=== PATIENT | male | born 1965 | race Caucasian/White ===

== ENCOUNTER → 2019-06-22 14:48 | Outpatient (BNVA) | payer MEDICARE, MEDICAID, SELFPAY | PROVIDERS: Family Provider Family Medicine; PCP Family Medicine; Visit Provider Nurse Practitioner | DX: F43.12 Post-traumatic stress disorder, chronic (principal); F41.1 Generalized anxiety disorder; F17.210 Nicotine dependence, cigarettes, uncomplicated | CPT/HCPCS: 99213 ==

== ENCOUNTER 2019-06-23 15:39 | Outpatient (CLI) | payer MEDICARE, MEDICAID, SELFPAY ==
--- NOTE | 2019-06-23 | XR_ITS ---
WS: [id number] CHEST 2 VIEWS HISTORY: COPD WITH ACUTE EXACERBATION COMPARISON: 2018 Lungs: New area of increasing consolidation at the lingula. There is also mild tenting of the LEFT di aphragm. Otherwise lungs are clear. Cardiac size: Normal. Mediastinum/Aorta: Normal mediastinum. Bones: Mild thoracic spondylosis. XR/XR chest 2V* [id number] IMPRESSION: 1. New opacification in the lingula with tenting of the diaphragm. Differentia l includes pneumonia and atelectasis. Neoplasm not completely excluded. Recomme nd follow-up radiograph after treatment to ensure resolution. 2. Emphysema.
== END 2019-06-23 15:40 | disposition home or self-care (01) ==
LOC: RADOUTREAD 06-24 07:43
PROVIDERS: Family Provider Family Medicine; PCP Family Medicine; Visit Provider Family Medicine
DX: J43.9 Emphysema, unspecified (principal)

== ENCOUNTER 2019-08-12 15:03 | Outpatient (CLI) | payer MEDICARE, MEDICAID, SELFPAY ==
--- NOTE | 2019-08-12 | XR_ITS ---
WS: [id number] Chest 2 views, 08/12/2019 Clinical Data: COPD WITH ACUTE EXACERBATION Comparison: PA and lateral chest, 06/23/2019. Findings: No nodules, masses or effusions are seen. The heart is normal. The pulmonary vascularity is not increased. No pneumonia or pneumothorax is seen. There is a left cardiophrenic fat pad or cyst o r perhaps pleural reaction unchanged. XR/XR chest 2V* [id number] Impression: Negative chest.
== END 2019-08-12 15:04 | disposition home or self-care (01) ==
LOC: RADOUTREAD 08-13 07:33
PROVIDERS: Family Provider Family Medicine; PCP Family Medicine; Visit Provider Family Medicine
DX: Z01.89 Encounter for other specified special examinations (principal)

== ENCOUNTER → 2019-09-14 07:36 | Outpatient (BNVA) | payer MEDICARE, MEDICAID, SELFPAY | PROVIDERS: Family Provider Family Medicine; PCP Family Medicine; Visit Provider Nurse Practitioner | DX: F41.1 Generalized anxiety disorder (principal); F43.12 Post-traumatic stress disorder, chronic | CPT/HCPCS: 99213 ==

== ENCOUNTER → 2019-12-07 07:46 | Outpatient (BNVA) | payer MEDICARE, MEDICAID, SELFPAY | PROVIDERS: Family Provider Family Medicine; PCP Family Medicine; Visit Provider Nurse Practitioner | DX: F41.1 Generalized anxiety disorder (principal); F43.12 Post-traumatic stress disorder, chronic | CPT/HCPCS: 99213 ==

== ENCOUNTER → 2020-04-11 08:10 | Outpatient (BNVA) | payer MEDICARE, MEDICAID, SELFPAY | PROVIDERS: Family Provider Family Medicine; PCP Family Medicine; Visit Provider Nurse Practitioner | DX: F43.12 Post-traumatic stress disorder, chronic (principal); F41.1 Generalized anxiety disorder | CPT/HCPCS: 99213 ==

== ENCOUNTER → 2020-07-05 07:43 | Outpatient (BNVA) | payer MEDICARE, MEDICAID, SELFPAY | PROVIDERS: Family Provider Family Medicine; PCP Family Medicine; Visit Provider Nurse Practitioner | DX: F43.12 Post-traumatic stress disorder, chronic (principal); F41.1 Generalized anxiety disorder | CPT/HCPCS: 99213 ==

== ENCOUNTER → 2020-08-30 08:33 | Outpatient (BNVA) | payer MEDICARE, MEDICAID, SELFPAY | PROVIDERS: PCP Family Medicine; Referring Provider Family Medicine; Visit Provider Anesthesiology Pain Medicine | DX: M79.18 Myalgia, other site (principal); M54.16 Radiculopathy, lumbar region; M54.9 Dorsalgia, unspecified; M47.816 Spondylosis without myelopathy or radiculopathy, lumbar region; M51.36 Other intervertebral disc degeneration, lumbar region | CPT/HCPCS: 20553; 99205; J1030; J3490 ==

== ENCOUNTER 2020-09-15 12:44 | Outpatient (CLI) | payer MEDICARE, MEDICAID, SELFPAY ==
--- NOTE | 2020-09-15 13:00 | MR_ITS ---
WS: [id number] MRI LUMBAR SPINE NONCONTRAST TECHNIQUE: Sagittal T1, T2 and STIR imaging. Axial T1 and T2 imaging. CLINICAL INFORMATION: M54.16 - Radiculopathy, lumbar region COMPARISON: MRI 2009 FINDINGS: Images moderately degraded due to motion artifact. Mild central canal stenosis in the cervical spinal pier hand helper imaging at C5-C6 and C6-C7. Tiny amount of m yelomalacia or tiny syrinx in the thoracic cord at T7. L1-L2: Mild disc bulging with slight effacement of ventral thecal sac. Moderate central canal stenosi s. Small right foraminal protrusion with mild to moderate right foraminal narrowing. L2-L3: Broad-based central disc protrusion with severe central canal stenosis. Moderate facet arthrop athy. Impingement and flattening of the thecal sac. Foramen are patent. L3-L4: Mild annular bulging with slight effacement of the ventral thecal sac. Moderate facet arthropa thy. Spinal canal and foramen are patent. L4-L5: Mild disc bulging with narrowing of the subarticular recess bilaterally. Mild central canal st enosis. Mild left and no significant right foraminal narrowing. Moderate facet arthropathy. L5-S1: Evidence of prior left hemilaminectomy at this level. Filling of the left subarticular recess likely due to postoperative changes/granulation tissue. Appearance is similar compared to 2009. Moder ate left and mild right bony foraminal narrowing. Visualized pelvic bony structures: Normal. Paravertebral soft tissues: Normal. MR/MR lumbar spine wo con* [id number] IMPRESSION: 1. Broad-based central disc protrusion L2-3 is new from 2009 with severe centr al canal stenosis and flattening of the thecal sac. Moderate facet arthropathy this level. Associated proximal redundancy of the cauda equina nerve rootlets. 2. Mild to moderate central canal stenosis L1-2 with mild right foraminal narr owing. 3. Prior postoperative changes left L5-S1 hemilaminectomy with presumed partia l discectomy. Granulation tissue appears to fill the left subarticular recess s imilar to 2009. Moderate left L5-S1 bony foraminal narrowing. 4. Mild central canal stenosis L4-5 due to disc bulging with facet arthropathy and ligamentum flavum hypertrophy. Mild left L4-5 foraminal narrowing. 5. Mild central canal stenosis in the cervical spinal pier hand helper imaging at C5-C6 a nd C6-C7. Additional small focus of myelomalacia or tiny syrinx in the mid thor acic cord. Findings can be further evaluated with MRI if clinically indicated.
== END 2020-09-15 12:45 | disposition home or self-care (01) ==
LOC: RADSHAW 12:53
PROVIDERS: PCP Family Medicine; Visit Provider Anesthesiology Pain Medicine
DX: M54.16 Radiculopathy, lumbar region (principal); M51.26 Other intervertebral disc displacement, lumbar region; M48.061 Spinal stenosis, lumbar region without neurogenic claudication
CPT/HCPCS: 72148

== ENCOUNTER → 2020-09-20 09:57 | Outpatient (BNVA) | payer MEDICARE, MEDICAID, SELFPAY | PROVIDERS: PCP Family Medicine; Visit Provider Anesthesiology Pain Medicine | DX: M54.42 Lumbago with sciatica, left side (principal); M48.062 Spinal stenosis, lumbar region with neurogenic claudication; M47.816 Spondylosis without myelopathy or radiculopathy, lumbar region; M51.36 Other intervertebral disc degeneration, lumbar region; M54.16 Radiculopathy, lumbar region; M54.9 Dorsalgia, unspecified | CPT/HCPCS: 99215 ==

== ENCOUNTER → 2020-09-21 14:58 | Outpatient (BNVA) | payer MEDICARE, MEDICAID, SELFPAY | PROVIDERS: PCP Family Medicine; Referring Provider Anesthesiology Pain Medicine; Visit Provider Orthopaedic Surgery | DX: M54.16 Radiculopathy, lumbar region (principal); M51.36 Other intervertebral disc degeneration, lumbar region | CPT/HCPCS: 72120 ==

== ENCOUNTER → 2020-10-03 15:12 | Outpatient (BNVA) | payer MEDICARE, MEDICAID, SELFPAY | PROVIDERS: PCP Family Medicine; Visit Provider Nurse Practitioner | DX: F43.12 Post-traumatic stress disorder, chronic (principal); F41.1 Generalized anxiety disorder | CPT/HCPCS: 99214 ==

== ENCOUNTER → 2020-12-14 14:46 | Outpatient (BNVA) | payer MEDICARE, MEDICAID, SELFPAY | PROVIDERS: PCP Family Medicine; Visit Provider Nurse Practitioner | DX: F43.12 Post-traumatic stress disorder, chronic (principal); F41.1 Generalized anxiety disorder | CPT/HCPCS: 99214 ==

== ENCOUNTER → 2021-01-10 08:27 | Outpatient (BNVA) | payer MEDICARE, MEDICAID, SELFPAY | PROVIDERS: PCP Family Medicine Adult Medicine; Visit Provider Family Medicine Adult Medicine | DX: E66.9 Obesity, unspecified (principal); R03.0 Elevated blood-pressure reading, without diagnosis of hypertension; Z87.898 Personal history of other specified conditions; N50.9 Disorder of male genital organs, unspecified; J44.9 Chronic obstructive pulmonary disease, unspecified; M15.9 Polyosteoarthritis, unspecified; Z13.6 Encounter for screening for cardiovascular disorders; F41.1 Generalized anxiety disorder | CPT/HCPCS: 80053; 80061; 83036; 84443; 85025; 85651 ==

== ENCOUNTER → 2021-02-02 08:38 | Outpatient (BNVA) | payer MEDICARE, MEDICAID, SELFPAY | PROVIDERS: PCP Family Medicine Adult Medicine; Visit Provider Urology | DX: N50.9 Disorder of male genital organs, unspecified (principal); R10.31 Right lower quadrant pain | CPT/HCPCS: 81003 ==

== ENCOUNTER → 2021-03-13 14:34 | Outpatient (BNVA) | payer MEDICARE, MEDICAID, SELFPAY | PROVIDERS: PCP Family Medicine Adult Medicine; Visit Provider Nurse Practitioner | DX: F43.12 Post-traumatic stress disorder, chronic (principal); F41.1 Generalized anxiety disorder | CPT/HCPCS: 99214 ==

== ENCOUNTER → 2021-05-31 13:18 | Outpatient (BNVA) | payer MEDICARE, MEDICAID, SELFPAY | PROVIDERS: PCP Family Medicine Adult Medicine; Visit Provider Nurse Practitioner | DX: F43.12 Post-traumatic stress disorder, chronic (principal); F41.1 Generalized anxiety disorder | CPT/HCPCS: 99214 ==

== ENCOUNTER 2021-06-06 08:24 | Outpatient (CLI) | payer MEDICARE, MEDICAID, SELFPAY ==
--- NOTE | 2021-06-06 10:00 | CT_ITS ---
WS: [id number] CT ABDOMEN PELVIS TECHNIQUE: Contrast-enhanced CT of the abdomen and pelvis with coronal and sagittal reformatted image s. CLINICAL INFORMATION: R10.31 - Right lower quadrant pain COMPARISON: CT 10 ,014 DLP: 1206.[address] scans at [facility] use at least one of these dose optimization techniques: automated e xposure control; mA and/or kV adjustment per patient size (includes targeted exams where dose is matc hed to clinical indication); or iterative reconstruction. FINDINGS: Diffuse fatty infiltration of the liver. A few incidental hepatic cysts. Normal gallbladder. Normal p ortal vein and splenic vein. Mild fatty atrophy of the pancreas. Normal spleen. Small esophageal hiat al hernia. Slight atelectasis in the lung bases. Adrenal glands are normal. Normal renal parenchymal enhancement. No hydronephrosis. No hydronephrosis in either kidney. Normal caliber abdominal aorta. Small fat-containing left greater than right inguinal hernias. Tiny incidental fat-containing umbilic al hernia. Sigmoid diverticulosis. No evidence of acute diverticulitis. No evidence of high-grade sma ll or large bowel obstruction. Normal air-filled appendix. No evidence of acute appendicitis. No flui d collections in right lower quadrant. Normal caliber abdominal aorta. No abdominal or pelvic lymphadenopathy. Moderate spondylitic changes lumbar spine. Eccentric sclerotic changes involving the articular surface of the right femoral head with cystic familia nges suspicious for avascular necrosis. Minimal depression. Recommend correlation with right hip pain . This can be further evaluated with MRI. This was present in 2013. CT/CT abdomen pelvis w con* [id number] IMPRESSION: 1. Normal appendix in the right lower quadrant. No evidence of acute appendici tis. 2. Mild diffuse fatty infiltration of the liver. A few incidental stable subce ntimeter hepatic cysts. 3. Small esophageal hiatal hernia is progressed compared to 2014. No hydroneph rosis in either kidney. 4. Sigmoid diverticulosis. No evidence of acute diverticulitis. 5. Evidence of avascular necrosis in the right femoral head similar to 2014. C orrelation right hip pain. This can be further evaluated with MRI.
[2021-06-06] MEDS: iohexol 350 mg/mL 100 mL Btl IV (15:04)
[2021-06-06] MEDS: iohexol 300 mg/mL 50 mL Btl PO (15:05)
== END 2021-06-06 08:25 | disposition home or self-care (01) ==
PROVIDERS: PCP Family Medicine Adult Medicine; Visit Provider Surgery
DX: R10.31 Right lower quadrant pain (principal); K76.0 Fatty (change of) liver, not elsewhere classified; K44.9 Diaphragmatic hernia without obstruction or gangrene; K57.30 Diverticulosis of large intestine without perforation or abscess without bleeding
CPT/HCPCS: 74177; Q9967

== ENCOUNTER → 2021-06-26 14:32 | Outpatient (BNVA) | payer MEDICARE, MEDICAID, SELFPAY | PROVIDERS: PCP Family Medicine Adult Medicine; Referring Provider Surgery; Visit Provider Orthopaedic Surgery | DX: M25.551 Pain in right hip (principal) | CPT/HCPCS: 73502 ==

== ENCOUNTER → 2021-07-03 10:34 | Outpatient (BNVA) | payer MEDICARE, MEDICAID, SELFPAY | PROVIDERS: PCP Family Medicine Adult Medicine; Visit Provider Nurse Practitioner Family | DX: Z20.822 Contact with and (suspected) exposure to COVID-19 (principal); I10 Essential (primary) hypertension; J44.9 Chronic obstructive pulmonary disease, unspecified; Z72.0 Tobacco use | CPT/HCPCS: 87635 ==

== ENCOUNTER → 2021-07-23 11:04 | Outpatient (BNVA) | payer MEDICARE, SELFPAY | PROVIDERS: PCP Family Medicine Adult Medicine; Visit Provider Orthopaedic Surgery | DX: Z01.818 Encounter for other preprocedural examination (principal); Z20.822 Contact with and (suspected) exposure to COVID-19 | CPT/HCPCS: 87635 ==

== ENCOUNTER 2021-07-27 09:26 | Day surgery (SDC) | payer MEDICARE, MEDICAID, SELFPAY ==
[2021-07-24 12:24] VITALS: BMI 29.5
--- NOTE | 2021-07-24 12:42 | P.ANESASSM_ITS ---
Pre-Anesthetic Assessment Height/Weight: Height 1.73 m Weight 87.997 kg Operation Date: 07/27/21 07:00 Proposed Procedures p Lumbar Spine Decompression L2/3 04944/19712/M48.062(Right) - Enrique Pederson DO Familial anesthetic complications: None Social No alcohol and No tobacco former smoker - quit 4 months ago Exam alert, oriented x 3, clear to auscultation bilaterally and regular rate & rhythm Airway Mallampati: Class III Dentition: other (no upper teeth) Pulmonary Chronic Obstructive Pulmonary Disease (improved since quitting) CV/HEM Hypertension GI Gastroesophageal Reflux Disease Anesthetic Plan ASA status: 2 Anesthesia: General Medications/Allergies Home Medications Medication Instructions Recorded Confirmed Last Taken Type albuterol sulfate 90 mcg/actuation 2 inh INHALATION Q6H PRN 06/22/19 07/24/21 Unknown History breath activated powder inhaler ActivICE See Rx Instructions .ROUTE .COMPLEX 11/06/20 07/03/21 Unknown History budesonide-formoterol HFA 160 2 puff INHALATION BID #10.2 g 01/10/21 07/24/21 U nknown Rx mcg-4.5 mcg/actuation aerosol inhaler (Symbicort) ipratropium 0.5 mg-albuterol 3 mg 3 ml INHALATION Q4H PRN #180 ml 01/10/21 07/24/21 Unknown Rx (2.5 mg base)/3 mL nebulization soln tamsulosin 0.4 mg capsule 0.4 mg PO .every other day cap 04/30/21 07/24/21 Unknown History omeprazole 40 mg capsule,delayed 40 mg PO DAILY 90 Days #90 cap 05/14/21 07/24/21 Unknown Rx release alprazolam 0.5 mg tablet (Xanax) 0.5 mg PO TID PRN #90 tab 05/31/21 07/24/21 Unknown Rx tramadol 50 mg tablet 50 mg PO TID 30 Days #90 tab 06/25/21 07/24/21 Unknown Rx gabapentin 300 mg capsule 300 mg PO TID 90 Days #270 cap 07/09/21 07/24/21 Unknown Rx Allergies Allergy/AdvReac Type Severity Reaction Status Date / Time No Known Allergies Allergy Verified 06/26/21 13:44 [facility] Anesthesia Medical History BPH (benign prostatic hyperplasia) COPD (chronic obstructive pulmonary disease) PFT 07/2019 FEV 77% Degenerative lumbar disc Facet arthropathy, lumbar Ganglion, left hand Generalized anxiety disorder GERD (gastroesophageal reflux disease) History of prediabetes Hypertension Lumbar radiculopathy Lumbar stenosis with neurogenic claudication Back surgery x2 Medicare annual wellness visit, subsequent Normal colonoscopy 10/05/2020 with recommended F/U in 10 years Osteoarthritis, multiple sites Other kyphosis, thoracic region Otitis media Post-traumatic stress disorder, chronic Psychiatric care Surgical History History of umbilical hernia repair Previous back surgery Status post colonoscopy Status post right inguinal hernia repair Family History Mother , at age 62 COPD (chronic obstructive pulmonary disease) Father Dementia Social History Smoking and tobacco status: former smoker Alcohol intake: never Marital status: Current occupational status: disabled History of recent travel: No Data Anesthesia Cardiac Studies: No Data to Display
[2021-07-27] VITALS (11 sets, daily range): BP systolic 121–155; BP diastolic 74–100; PULSE 62–72; RESP 12–18; TEMP 36.1–36.8; O2SAT 93–100
--- NOTE | 2021-07-27 | SCC_ITS ---
Procedure done: 1. L2/3 Laminectomy with partial facetectomy 15.5 seconds of fluoroscopic guidance, for a cumulative dose of 4.46 mGy, was provided to Dr. Pederson by the radiology department. C-arm images of the lumbar spine were saved for the patient's permanent record. [facility]
[2021-07-27] MEDS: sodium chloride 0.9% 1,000 ML 30 ML IV (10:10)
--- NOTE | 2021-07-27 12:19 | P.ANESUD_ITS ---
Pre-Anesthetic Update Pre-Anesthetic Assessment: Date of Surgery/Procedure: 07/27/21 Preop Britany gnosis: Lumbar stenosis Proposed Procedure: Operation Date: 07/27/21 10:40 Proposed Procedures p Lumbar Spine Decompression possible discectomy L2/3 52025/17586/M48.062(Right) - Enrique Pederson, DO Any changes to Pre-Anesthetic Assessment?: No Last Intake: Intake Last Liquid Date 07/27/21 Last Liquid Time 18:00 Last Solid Date 07/27/21 Last Solid Time 17:00 Vitals: Temperature 98.2 F 07/27/21 09:45 Temperature Source Temporal Artery S can 07/27/21 09:45 Pulse Rate 62 07/27/21 09:45 Respiratory Rate 18 07/27/21 09:45 Blood Pressure 121/77 07/27/21 09:45 Blood Pressure Gertrude n 91 07/27/21 09:45 Pulse Oximetry 98 07/27/21 09:45 Oxygen Delivery Me thod 07/27/21 09:48 Exam: Pre-Anes Outpt Exam: alert, oriented x 3, clear to auscultation bilaterally and regular rate & rhythm Cardiac Studies: No Data to Display
[2021-07-27] MEDS: HYDROmorphone 1 mg/mL INJ 1 mL 0.5 MG IVP (12:34)
--- NOTE | 2021-07-27 14:37 | P.HP_ITS ---
Providers/Chief Complaint Primary Care Provider: Jude Pacheco MD Chief Complaint: lumbar stenosis with neurogenic claudication History of Present Illness James Rodriguez JR is a 56 year old male Lateral and anterior right lower extremity pain,as well as pain to his scrotum. He has been using tramadol, celebrex, and baclofen without relief. He rates his pain 7/10 today. He has a history of two previous spine surgeries. Review of Systems Narrative: General Reports: 10 or more systems reviewed and unremarkable except in HPI and below Const Denies: fever(s) or chills Eyes Denies: change in vision ENMT Denies: throat pain Card Denies: chest pain or dyspnea on exertion Resp Denies: dyspnea, productive cough or wheezing GI Denies: abdominal pain, nausea or vomiting Musc Reports: back pain and limited range of motion Skin/Breast Denies: changes in skin color or dry skin Neuro Reports: numbness in extremities and weakness in extremities Psych Denies: anxiety Colten/Lymph Denies: easy bruising or easy bleeding Medications/Allergies Home Medications Medication Instructions Recorded Confirmed Last Taken Type albuterol sulfate 90 mcg/actuation 2 inh INHALATION Q6H PRN 06/22/19 07/27/21 07/27/21 History breath activated powder inhaler ActivICE See Rx Instructions .ROUTE .COMPLEX 11/06/20 07/03/21 Unknown History budesonide-formoterol HFA 160 2 puff INHALATION BID #10.2 g 01/10/21 07/27/21 07/27/21 Rx mcg-4.5 mcg/actuation aerosol inhaler (Symbicort) ipratropium 0.5 mg-albuterol 3 mg 3 ml INHALATION Q4H PRN #180 ml 01/10/21 07/24/21 Unknown Rx (2.5 mg base)/3 mL nebulization soln tamsulosin 0.4 mg capsule 0.4 mg PO .every other day cap 04/30/21 07/27/21 07/26/21 History omeprazole 40 mg capsule,delayed 40 mg PO DAILY 90 Days #90 cap 05/14/21 07/27/21 07/27/21 Rx release alprazolam 0.5 mg tablet (Xanax) 0.5 mg PO TID PRN #90 tab 05/31/21 07/27/21 07/27/21 Rx tramadol 50 mg tablet 50 mg PO TID 30 Days #90 tab 06/25/21 07/27/21 07/27/21 Rx gabapentin 300 mg capsule 300 mg PO TID 90 Days #270 cap 07/09/21 07/27/21 07/27/21 Rx Allergies Allergy/AdvReac Type Severity Reaction Status Date / Time No Known Allergies Allergy Verified 06/26/21 13:44 PFSH Acute PFSH: Medical History BPH (benign prostatic hyperplasia) COPD (chronic obstructive pulmonary disease) PFT 07/2019 FEV 77% Degenerative lumbar disc Facet arthropathy, lumbar Ganglion, left hand Generalized anxiety disorder GERD (gastroesophageal reflux disease) History of prediabetes Hypertension Lumbar radiculopathy Lumbar stenosis with neurogenic claudication Back surgery x2 Medicare annual wellness visit, subsequent Normal colonoscopy 10/05/2020 with recommended F/U in 10 years Osteoarthritis, multiple sites Other kyphosis, thoracic region Otitis media Post-traumatic stress disorder, chronic Psychiatric care Surgical History History of umbilical hernia repair Previous back surgery Status post colonoscopy Status post right inguinal hernia repair Family History Mother , at age 62 COPD (chronic obstructive pulmonary disease) Father Dementia Social History Smoking and tobacco status: former smoker Alcohol intake: never Marital status: Current occupational status: disabled History of recent travel: No Vitals/I&O/Wt Last Vital Signs Temp 98.2 F 07/27/21 09:45 Pulse 62 07/27/21 09:45 Resp 18 07/27/21 12:34 BP 121/77 07/27/21 09:45 Pulse Ox 96 07/27/21 12:34 Physical Exam Narrative: CONSTITUTIONAL: The patient is a normal appearing [] in no apparent distress. GENERAL: Patient in no acute distress. CARDIAC: Regular rate and rhythm. CHEST: Normal inspiratory effort, normal respiratory rate. ABDOMEN: Soft and nontender. SKIN: Clear, warm and intact. NEURO?PSYCH: The patient is alert and oriented to person, place and time. Sensorv /SILT Motor StrengthShoulder abduction C5 5/5Wrist extension C6 5/5Elbow extension C7 5/5Hand Manager [employer] C8 5/5Finger abduction T15/5 Radial/ Ulnar/ Median n intact LowerSensory (SILT)Motor StrengthHin flexion L2/3Ant/inner thigh 5/5Hip adduction L2/3 5/5Knee extension L4 Lat thigh, 5/5Toe dorsiflexion L5 5/5Ankle dorsiflexion L5/ P57Qpovemn flexion S1 5/5 DTRBleeps 2+Triceps 2+Brachioradialis 2+Patellar 2+Achilles 2+ MUSCULOSKELETAL: [] UPPEREXTREMITIES: The patient had full active ROM in fingers, wrist, elbow, and shoulder. The patient demonstrated ability to fully flex/extend/abduct/adduct fingers, make ok sign, cross 2nd/3rd digits, extend 1st digit fully.. Radial pulse 2+, CR<2 seconds. LOWER EXTREMITIES: Pt has full, active ROM of toes, ankle, knee, and hip. Dorsalis pedis/posterior tibialis pulses 2+, CR<2 seconds. SPINE: Skin warm, dry, intact. A&P Assessment and plan (1) Lumbar stenosis with neurogenic claudication: Right L2/3 laminectomy with partial facetectomy Status: Acute Attestations Medical Necessity Statement*: failed conservative tx Coding Level of Care Code Acute Vice President Compliance for Chg Fwd Diagnoses Lumbar stenosis with neurogenic claudication M48.062
--- NOTE | 2021-07-27 16:10 | PM.OP ---
Operative Report Date of procedure: July 27, 2021 Pre-op diagnosis: Preop Diagnosis Lumbar stenosis with neurogenic claudication Post-op diagnosis: same Procedure done: 1. L2/3 Laminectomy with partial facetectomy Surgeon: Enrique Pederson Estimated blood loss: 5 Procedure: 1. L2/3 Laminectomy with partial facetectomy Patient is brought to the operative suite. After undergoing anesthesia they are placed in the prone position. All areas of impingement are well padded. Patient is then prepped and draped in the normal sterile fashion. A skin incision is made over the L2/3 level. This is confirmed under c-arm guidance. A series of dilators are passed and the tubular retractor is docked on the L2 lamina. A bovie is used to clear the soft tissue off the lamina and the L 2/3 facet joint. A high speed meli is then used to perform the laminectomy and take down the medial aspect of the L 2/3 facet joint. A kerrison rongeure was then used to take down the remaining lamina and smooth the edge of the laminectomy up to the point where the ligamentum flavum attaches. Attention was then brought to the medial aspect of the facet joint. The remaining medial aspect of the superior and inferior aspect of the facet joint were taken down with the kerrison from the pedicle of L2 to L 3. The facet joint had significant hypertrophy. Attention was then brought to the Ligamentum Flavum. The ligament was taken down from the lamina of L2 to L3 and out medially to the remaining facet joint. The ligament was thick. The dura was then exposed. The dura was in good repair. The L2 nerve was then traced with a curette out the L2/3 foramen and found to be adequately decompressed. The L3 nerve was traced with a curette around the L3 pedicle. The lateral recess was opened with a kerrison helping to further decompress the L3 nerve. Wound is then irrigated copiously with saline and surgiflo is used to stop any bleeding. The tubular retractor is removed and the wound is closed with vicryl and monocryl suture. Glue is then used to protect the wound. A sterile dressing is then placed. Patient was then placed in the supine position and transferred to the PACU in stable condition.
--- NOTE | 2021-07-27 16:11 | XR_ITS ---
WS: [id number] XR lumbar spine 1V [id number] REASON FOR EXAM: OR PICS FINDINGS: Surgical device overlies the right L3-L4 interspace. XR/XR lumbar spine 1V [id number] IMPRESSION: Lumbar spine localization in surgery.
[2021-07-27] MEDS: fentaNYL 50 mcg/mL INJ 2mL IVP (16:25)
[2021-07-27] MEDS: HYDROcodone-acetaminophen 5-325 mg Tablet 1 TAB PO (16:55)
--- NOTE | 2021-07-27 17:18 | ANE.PACU2 ---
Inpatient post-anesthesia follow up: Airway intact: Yes Vital signs: Temperature 98 F Pulse Rate 66 Respiratory Rate 16 Blood Pressure 150/92 Pulse Oximetry 97 Oxygen Delivery Me thod Room Air Oxygen Flow Rate 6 Fraction of Inspir ed Oxygen Hydration adequate: Yes Nausea and vomiting: No Pain level: 4 Mental status: Baseline
== END 2021-07-27 17:20 | disposition home or self-care (01) ==
PROVIDERS: PCP Family Medicine Adult Medicine; Visit Provider Orthopaedic Surgery
PROC: (CPT 63005; principal; 2021-07-27 10:40)
DX: M48.062 Spinal stenosis, lumbar region with neurogenic claudication (principal); Z87.891 Personal history of nicotine dependence; J44.9 Chronic obstructive pulmonary disease, unspecified; I10 Essential (primary) hypertension; N40.0 Benign prostatic hyperplasia without lower urinary tract symptoms
CPT/HCPCS: 63047; 72020; 76000; J0690; J1100; J1170; J2405; J2704; J2710; J3010; J3490; J7030

== ENCOUNTER → 2021-08-23 13:08 | Outpatient (BNVA) | payer MEDICARE, MEDICAID, SELFPAY | PROVIDERS: PCP Family Medicine Adult Medicine; Visit Provider Nurse Practitioner | DX: F43.12 Post-traumatic stress disorder, chronic (principal); F41.1 Generalized anxiety disorder | CPT/HCPCS: 90832; 99214 ==

== ENCOUNTER → 2021-10-18 09:48 | Outpatient (BNVA) | payer MEDICARE, MEDICAID, SELFPAY | PROVIDERS: PCP Family Medicine Adult Medicine; Visit Provider Orthopaedic Surgery | DX: Z47.89 Encounter for other orthopedic aftercare (principal); Z98.890 Other specified postprocedural states | CPT/HCPCS: 99024 ==

== ENCOUNTER → 2021-11-16 08:48 | Outpatient (BNVA) | payer MEDICARE, MEDICAID, SELFPAY | PROVIDERS: PCP Family Medicine Adult Medicine; Visit Provider Family Medicine Adult Medicine | DX: I10 Essential (primary) hypertension (principal); J44.9 Chronic obstructive pulmonary disease, unspecified; N40.0 Benign prostatic hyperplasia without lower urinary tract symptoms; Z00.00 Encounter for general adult medical examination without abnormal findings; Z13.6 Encounter for screening for cardiovascular disorders; Z79.899 Other long term (current) drug therapy | CPT/HCPCS: 80053; 80061; 83036; 84443; 85025; G0103 ==

== ENCOUNTER → 2021-11-22 13:44 | Outpatient (BNVA) | payer MEDICARE, MEDICAID, SELFPAY | PROVIDERS: PCP Family Medicine Adult Medicine; Visit Provider Nurse Practitioner | DX: F43.12 Post-traumatic stress disorder, chronic (principal); F41.1 Generalized anxiety disorder | CPT/HCPCS: 99214 ==

== ENCOUNTER → 2022-02-13 09:20 | Outpatient (BNVA) | payer MEDICARE, MEDICAID, SELFPAY | PROVIDERS: PCP Family Medicine Adult Medicine; Visit Provider Surgery | DX: B37.0 Candidal stomatitis (principal) | CPT/HCPCS: 99203; 99213 ==

== ENCOUNTER → 2022-04-15 14:44 | Outpatient (BNVA) | payer MEDICARE, MEDICAID, SELFPAY | PROVIDERS: PCP Family Medicine Adult Medicine; Visit Provider Otolaryngology | DX: B37.0 Candidal stomatitis (principal); Z87.891 Personal history of nicotine dependence | CPT/HCPCS: 99202; 99203 ==

== ENCOUNTER 2022-07-29 18:40 | Emergency (ER) | payer MEDICARE, MEDICAID, SELFPAY ==
[2022-07-29 18:49] VITALS: BP 177/106; PULSE 78; RESP 18; TEMP 36.6; O2SAT 96
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
[2022-07-29] MEDS: tetanus-dipt-pertussis 0.5 mL SDV IM (19:10)
[2022-07-29] MEDS: HYDROcodone-acetaminophen 5-325 mg Tablet 1 TAB PO (19:10)
[2022-07-29 19:27] VITALS: BP 160/101; PULSE 70; RESP 16; O2SAT 95
[2022-07-29 19:36] VITALS: BP 160/101; PULSE 70; RESP 16; O2SAT 95
== END 2022-07-29 20:24 | disposition home or self-care (01) ==
PROVIDERS: Emergency Provider Emergency Medicine; PCP Family Medicine Adult Medicine
DX: T24.101A Burn of first degree of unspecified site of right lower limb, except ankle and foot, initial encounter (principal); T24.102A Burn of first degree of unspecified site of left lower limb, except ankle and foot, initial encounter; W36.1XXA Explosion and rupture of aerosol can, initial encounter; J44.9 Chronic obstructive pulmonary disease, unspecified; I10 Essential (primary) hypertension; Z87.891 Personal history of nicotine dependence; Z23 Encounter for immunization
CPT/HCPCS: 90471; 90715; 99283

== ENCOUNTER 2023-02-02 15:10 | Emergency (ER) | payer MEDICARE, MEDICAID, SELFPAY ==
[2023-02-02 15:15] VITALS: BP 146/87; PULSE 58; RESP 18; TEMP 36.7; O2SAT 97
[2023-02-02 15:40] VITALS: BP 151/56; PULSE 58; RESP 16; O2SAT 97
[2023-02-02] MEDS: ketorolac 60 mg/2 mL INJ IM (16:00)
--- NOTE | 2023-02-02 16:20 | W.ED.DENTAL ---
HPI - Dental/Oral General: Chief complaint: Dental/Oral Stated complaint: dental Time Seen by Provider: 02/02/23 15:39 History of Present Illness: Bryan Rodriguez is a 57-year-old man that presents to the emergency department with dental abscess. Patient reports symptoms began 2 to 3 days ago but have progressively worsened. Today the swelling and pain increased. Patient has a history of poor dentition and does not have a dental provider. He is trying to get into a dentist [place]. Associated symptoms: Denies ear or mastoid pain, fever(s) or odynophagia Review of Systems General: Reports: 10 or more systems reviewed and unremarkable except in HPI and below Const: Denies: fever(s), chills, change in appetite, change in weight, fatigue or malaise Eyes: Denies: change in vision, eye discomfort, eye discharge or eye redness ENMT: Denies: throat pain, enlarged tonsils, odynophagia, hoarseness, ear or mastoid pain, ear discharge, change in hearing, tinnitus, nasal discharge, nasal congestion, post nasal drip or sinus pain GI: Denies: abdominal pain, nausea, vomiting, dysphagia, diarrhea, constipation, bloating, GI cramping or hematochezia : Denies: flank pain, dysuria, urinary frequency, urinary urgency, urinary hesitancy, oliguria or hematuria Musc: Denies: neck pain, back pain, extremity pain, joint pain, joint swelling, joint redness, joint warmth or muscle weakness Endo: Denies: polyuria, polydipsia or tired all the time Colten/Lymph: Denies: easy bruising or easy bleeding PFS ED PFSH: Medical History (Updated 02/02/23 @ 16:28 by JACINTO Vazquez) BPH (benign prostatic hyperplasia) Chronic esophagitis COPD (chronic obstructive pulmonary disease) PFT 07/2019 FEV 77% Degenerative lumbar disc Facet arthropathy, lumbar Ganglion, left hand Generalized anxiety disorder GERD (gastroesophageal reflux disease) History of prediabetes Hypertension Lumbar radiculopathy Lumbar stenosis with neurogenic claudication Back surgery x2 Medicare annual wellness visit, subsequent Normal colonoscopy 10/05/2020 with recommended F/U in 10 years Osteoarthritis, multiple sites Other kyphosis, thoracic region Post-traumatic stress disorder, chronic Psychiatric care Right shoulder strain Surgical History History of dental surgery History of umbilical hernia repair Previous back surgery Status post colonoscopy Status post right inguinal hernia repair Family History Mother , at age 62 COPD (chronic obstructive pulmonary disease) Father Dementia Social History Smoking and tobacco status: former smoker Alcohol intake: never Substance/Drug Use: former Marital status: Current occupational status: disabled Physical Exam Const: COMMON NORMALS: no acute distress, patient oriented x3 and alert GENERAL APPEARANCE: cooperative ORIENTATION/CONSCIOUSNESS: Yes awake, Yes oriented to person, Yes oriented to place and Yes oriented to time HENMT: COMMON NORMALS: normocephalic and atraumatic HEAD & SCALP: normocephalic and atraumatic FACE & SINUS: normal facial exam MOUTH: Normal oral and palatal mucosa present TEETH & GINGIVA: Yes abnormal tooth and associated gingiva, Yes caries, Yes poor dentition and Yes teeth discoloration TEETH & GINGIVA IMAGES: 1. Dental abscess?indurated without fluctuance THROAT: posterior oropharynx normal Eye: COMMON NORMALS: Equal, round and reactive pupils present, EOMs intact bilaterally, conjunctivae normal and no scleral icterus GENERAL EYE: appearance normal, both eyes and all related structures ALIGNMENT: Yes alignment normal PERIORBITAL: periorbital findings normal CONJUNCTIVA: Yes conjunctivae normal PUPIL: Yes Equal, round and reactive pupils present Neck/C-Spine: COMMON NORMALS: full ROM GENERAL: Yes normal visual inspection Lymph: LYMPHATIC: no lymphadenopathy noted Chest: COMMONS NORMALS: normal inspection of the chest Breast/axilla inspection: Yes no chest deformity, asymmetry, normal contours, no nodules, masses, tenderness Resp: COMMON NORMALS: normal respiratory effort, No retractions, No use of accessory muscles and clear to auscultation bilaterally EFFORT & INSPECTION: Yes able to speak in complete sentences and Yes symmetric chest movement AUSCULTATION: clear to auscultation bilaterally Cardio: COMMON NORMALS: regular rate, regular rhythm and Peripheral pulses 2+ throughout RATE: regular rate RHYTHM: regular rhythm PERIPHERAL PULSES: Peripheral pulses 2+ throughout GI: COMMON NORMALS: Normal to inspection, nondistended, normoactive bowel sounds present, Soft to palpation, non-tender and No hepatosplenomegaly present INSPECTION: Yes normal to inspection AUSCULTATION: Yes normoactive bowel sounds PALPATION: Yes Soft to palpation and Yes No hepatosplenomegaly present RECTAL EXAM: Yes deferred Extremity: COMMON NORMALS: normal to inspection GENERAL: Yes normal exam except as noted Neuro: COMMON NORMALS: patient oriented x3 SENSORIUM/ORIENTATION: Yes alert, Yes oriented to person, Yes oriented to place and Yes oriented to time CRANIAL NERVES: Yes CN normal except as noted Psych: COMMON NORMALS: mental status grossly normal, Normal thought process present, cooperative, activity/motor behavior normal, denies homicidal ideation and denies suicidal ideation THOUGHT PROCESS: Normal thought process present Skin: COMMON NORMALS: no rashes or lesions noted, no wounds and turgor normal GENERAL SKIN EXAM: no rashes or lesions noted and turgor normal Course Vital Signs: Vital signs: Vital Signs Temperature 98.0 F 02/02/23 15:15 Pulse Rate 58 L 02/02/23 15:40 Respiratory Rate 16 02/02/23 15:40 Blood Pressure 151/56 02/02/23 15:40 Pulse Oximetry 97 02/02/23 15:40 Oxygen Delivery Me thod Room Air 02/02/23 15:40 MDM - Dental/Oral Medical Decision Making Presents with dental pain and palpable dental abscess Patient was treated here in the emergency department with Toradol and penicillin. Patient will be discharged home with Toradol and penicillin Patient needs to follow-up with dentist. A list has been provided but he is going to be working to get into the emergency clinic in [facility]. Discharge Plan Discharge Patient Disposition: Home Clinical Impression: Gingival abscess, Dental abscess, Fracture of tooth, Toothache Condition: Stable Prescriptions: New penicillin V potassium 500 mg tablet 500 mg PO Q6H 10 Days Qty: 40 0RF No Action ActivICE See Rx Instructions .ROUTE .COMPLEX Rx Instructions: 8% menthol; celecoxib 200 mg capsule 200 mg PO BID PRN (Reason: pain) Qty: 60 5RF ipratropium-albuterol 0.5 mg-3 mg(2.5 mg base)/3 mL solution for nebulization See Rx Instructions .ROUTE .COMPLEX Qty: 180 2RF Dose Instruction: USE 1 VIAL IN NEBULIZER EVERY 4 HOURS NEEDED FOR WHEEZING OR SHORTNESS OF BREATH Rx Instructions: USE 1 VIAL IN NEBULIZER EVERY 4 HOURS NEEDED FOR WHEEZING OR SHORTNESS OF BREATH tamsulosin 0.4 mg capsule See Rx Instructions .ROUTE .COMPLEX Qty: 90 2RF Dose Instruction: TAKE 1 CAPSULE BY MOUTH AT BEDTIME FOR HIGH BLOOD PRESSURE AND PROSTATE Rx Instructions: TAKE 1 CAPSULE BY MOUTH AT BEDTIME FOR HIGH BLOOD PRESSURE AND PROSTATE tramadol 50 mg tablet 50 mg PO TID PRN (Reason: pain) 30 Days Qty: 90 2RF Rx Instructions: refill on or after 30 day intervals Anoro Ellipta 62.5-25 mcg/actuation blister with device 1 inh inhalation DAILY Qty: 60 5RF alprazolam [Xanax] 0.5 mg tablet 0.5 mg PO TID PRN (Reason: anxiety) Qty: 90 2RF omeprazole 20 mg capsule,delayed release(DR/EC) 20 mg PO DAILY Qty: 90 1RF baclofen 20 mg tablet 20 mg PO TID PRN (Reason: muscle pain) Qty: 90 2RF albuterol sulfate 90 mcg/actuation aerosol powdr breath activated 2 inh INHALATION Q6H PRN (Reason: short of breath) Qty: 1 5RF fluconazole 150 mg tablet 150 mg PO Q3D Qty: 2 0RF Rx Instructions: may repeat second dose 72 hrs after first dose if symptoms persist Discharge Orders: Discharge ED (Routine); Ordered 02/02/23 Ordered By: Santy Younger Referrals: Jude Pacheco MD [Primary Care Provider] - Discharge Diet: Advance as tolerated Discharge Activity: Resume usual activity Patient Instructions: Dental Abscess (ED), Pain Management Activity Restrictions/Additional Instructions: Please follow-up with a dentist as discussed Coding Level of Care Code ED Digital Photographic Printer for Scotty Rojas
[2023-02-02] MEDS: penicillin v potassium 250 mg Tablet 500 MG PO (16:38)
[2023-02-02 16:41] VITALS: BP 145/85; PULSE 61; O2SAT 98
== END 2023-02-02 16:43 | disposition home or self-care (01) ==
PROVIDERS: Emergency Provider Nurse Practitioner; PCP Family Medicine Adult Medicine
DX: K05.20 Aggressive periodontitis, unspecified (principal); K08.89 Other specified disorders of teeth and supporting structures
CPT/HCPCS: 96372; 99284; J1885

== ENCOUNTER 2023-02-10 15:38 | Emergency (ER) | payer MEDICARE, MEDICAID, SELFPAY ==
[2023-02-10 15:59] VITALS: BP 123/77; PULSE 60; RESP 16; TEMP 36.6; O2SAT 98; BMI 27.0
--- NOTE | 2023-02-10 16:26 | W.ED.WOUNDLC ---
HPI - Wound/Laceration General: Chief Complaint: Wound/Laceration Stated Complaint: chair saw to leg Time Seen by Provider: 02/10/23 16:16 Source: patient Mode of arrival: ambulatory Limitations: no limitations History of Present Illness: Patient is a nice 57-year-old male presents to ED today for evaluation of a laceration to his left thigh that he sustained just prior to arrival after cutting it with a chainsaw. Tetanus is up-to-date. He is ambulatory on the extremity. Onset (ago): hour(s) Extremity Location: Left: thigh Place: home Patient tetanus UTD: Yes Context: accidental Associated symptoms: Reports no associated symptoms Review of Systems Musc: Reports: extremity pain; Denies: extremity swelling, joint pain or joint swelling Skin/Breast: Reports: other (laceration left thigh) Neuro: Denies: numbness in extremities or sensory changes PFSH ED PFSH: Medical History BPH (benign prostatic hyperplasia) Chronic esophagitis COPD (chronic obstructive pulmonary disease) PFT 07/2019 FEV 77% Degenerative lumbar disc Facet arthropathy, lumbar Ganglion, left hand Generalized anxiety disorder GERD (gastroesophageal reflux disease) History of prediabetes Hypertension Lumbar radiculopathy Lumbar stenosis with neurogenic claudication Back surgery x2 Medicare annual wellness visit, subsequent Normal colonoscopy 10/05/2020 with recommended F/U in 10 years Osteoarthritis, multiple sites Other kyphosis, thoracic region Post-traumatic stress disorder, chronic Psychiatric care Right shoulder strain Surgical History History of dental surgery History of umbilical hernia repair Previous back surgery Status post colonoscopy Status post right inguinal hernia repair Family History Mother , at age 62 COPD (chronic obstructive pulmonary disease) Father Dementia Social History Smoking and tobacco status: former smoker Alcohol intake: never Substance/Drug Use: former Marital status: Current occupational status: disabled Physical Exam Const: COMMON NORMALS: no acute distress, average body habitus, no limitations, healthy appearing, alert and well nourished Extremity: COMMON NORMALS: full ROM GENERAL: Yes normal exam except as noted EXTREMITY IMAGE (FRONT): 1. 6.5cm laceration that does not extend any deeper than subcutaneous tissue; no bleeding Neuro: COMMON NORMALS: moves all extremities, no focal motor deficits and no sensory deficits noted SENSORIUM/ORIENTATION: Yes alert Skin: TRAUMA: laceration Procedures Laceration Laceration 1: Site: lower extremity Side (If applicable): left Size (cm): 6.5 Description: linear Depth: simple, single layer Local Anesthetic: lidocaine 1% and with epi Amount of anesthesia used (mL): 5.0 Pre-repair: wound explored and irrigated extensively Skin layer closed with: nylon Size (cm): 4-0 Number of sutures: 9 Technique: simple, interrupted Course Vital Signs: Vital signs: Vital Signs Temperature 97.8 F 02/10/23 15:59 Pulse Rate 60 02/10/23 15:59 Respiratory Rate 16 02/10/23 15:59 Blood Pressure 123/77 02/10/23 15:59 Pulse Oximetry 98 02/10/23 15:59 Oxygen Delivery Me thod Room Air 02/10/23 15:59 MDM - Wound/Laceration Medical Decision Making Wound copiously irrigated and repaired as documented. Patient was given wound care/infection precautions at home. Discharge Plan Discharge Patient Disposition: Home Clinical Impression: Laceration of left thigh Qualifiers: Encounter type: initial encounter Qualified Code(s): S71.112A - Laceration without foreign body, left thigh, initial encounter Condition: Stable Prescriptions: No Action ActivICE See Rx Instructions .ROUTE .COMPLEX Rx Instructions: 8% menthol; celecoxib 200 mg capsule 200 mg PO BID PRN (Reason: pain) Qty: 60 5RF ipratropium-albuterol 0.5 mg-3 mg(2.5 mg base)/3 mL solution for nebulization See Rx Instructions .ROUTE .COMPLEX Qty: 180 2RF Dose Instruction: USE 1 VIAL IN NEBULIZER EVERY 4 HOURS NEEDED FOR WHEEZING OR SHORTNESS OF BREATH Rx Instructions: USE 1 VIAL IN NEBULIZER EVERY 4 HOURS NEEDED FOR WHEEZING OR SHORTNESS OF BREATH tamsulosin 0.4 mg capsule See Rx Instructions .ROUTE .COMPLEX Qty: 90 2RF Dose Instruction: TAKE 1 CAPSULE BY MOUTH AT BEDTIME FOR HIGH BLOOD PRESSURE AND PROSTATE Rx Instructions: TAKE 1 CAPSULE BY MOUTH AT BEDTIME FOR HIGH BLOOD PRESSURE AND PROSTATE tramadol 50 mg tablet 50 mg PO TID PRN (Reason: pain) 30 Days Qty: 90 2RF Rx Instructions: refill on or after 30 day intervals Anoro Ellipta 62.5-25 mcg/actuation blister with device 1 inh inhalation DAILY Qty: 60 5RF alprazolam [Xanax] 0.5 mg tablet 0.5 mg PO TID PRN (Reason: anxiety) Qty: 90 2RF omeprazole 20 mg capsule,delayed release(DR/EC) 20 mg PO DAILY Qty: 90 1RF baclofen 20 mg tablet 20 mg PO TID PRN (Reason: muscle pain) Qty: 90 2RF albuterol sulfate 90 mcg/actuation aerosol powdr breath activated 2 inh INHALATION Q6H PRN (Reason: short of breath) Qty: 1 5RF fluconazole 150 mg tablet 150 mg PO Q3D Qty: 2 0RF Rx Instructions: may repeat second dose 72 hrs after first dose if symptoms persist penicillin V potassium 500 mg tablet 500 mg PO Q6H 10 Days Qty: 40 0RF Discharge Orders: Discharge ED (Routine); Ordered 02/10/23 Ordered By: Keysha Urrutia Referrals: Jude Pacheco MD [Primary Care Provider] - Patient Instructions: Care For Your Stitches (DC), Laceration (DC) Activity Restrictions/Additional Instructions: Keep wound/laceration clean with warm soap and water twice daily. Monitor for signs of infection such as redness, swelling, increased pain, or drainage. Please seek medical re-evaluation if these occur. If you received sutures today these will need to be removed (unless you were told by the provider that they are absorbable). The provider should have discussed with you the length of time until removal-7 TO 10 DAYS. You may return to the emergency department for this service. Coding Level of Care Code ED Stream Control Officer for Scotty Rojas
== END 2023-02-10 17:16 | disposition home or self-care (01) ==
PROVIDERS: Emergency Provider Physician Assistant; PCP Family Medicine Adult Medicine
DX: S71.112A Laceration without foreign body, left thigh, initial encounter (principal); Z87.891 Personal history of nicotine dependence; J44.9 Chronic obstructive pulmonary disease, unspecified; I10 Essential (primary) hypertension; W29.3XXA Contact with powered garden and outdoor hand tools and machinery, initial encounter
CPT/HCPCS: 12002; 99282

== ENCOUNTER → 2023-04-18 14:20 | Outpatient (BNVA) | payer MEDICARE, MEDICAID, SELFPAY | PROVIDERS: PCP Family Medicine Adult Medicine; Visit Provider Family Medicine Adult Medicine | DX: Z11.59 Encounter for screening for other viral diseases (principal); I10 Essential (primary) hypertension | CPT/HCPCS: 80053; 86705; 86706; 86709; 86803; 87340 ==

== ENCOUNTER 2023-04-30 09:33 | Outpatient (CLI) | payer MEDICARE, MEDICAID, SELFPAY ==
--- NOTE | 2023-04-30 09:30 | CT_ITS ---
WS: [id number] LDCT LUNG CANCER SCREENING TECHNIQUE: Noncontrast CT of the chest with coronal and sagittal reformatted images. CLINICAL INFORMATION: shavon 40 + years COMPARISON: None. DLP: 71.79 mGy.cm DIvol: Mean CTDIvol: 1.40 (mGy) All CT scans at [facility] use at least one of these dose optimization techniques: automat ed exposure control; mA and/or kV adjustment per patient size (includes targeted exams where dose is matched to clinical indication); or iterative reconstruction. FINDINGS: Normal caliber thoracic aorta. Aortic calcification. No mediastinal or hilar lymphadenopathy. No axil bruce lymphadenopathy. Adrenal glands are normal. Incidental hepatic cyst dome of the liver measuring 11 mm. Normal GE junction. Adrenal glands are normal. Splenic granulomas. Calcified granulomas. Mild chronic emphysematous changes. Tiny noncalcified nodules along the LEFT fi ssure. Tiny noncalcified nodule LEFT upper lobe anteriorly. Bronchiectasis RIGHT middle lobe. RIGHT m iddle lobe 5 mm nodule along the anterior RIGHT heart. IMPRESSION: CT/CT lung screening [id number] LUNG-RADS: 2-Benign Appearance or Behavior FOLLOW UP: 12 Month: Continue annual screening with LDCT
== END 2023-04-30 09:34 | disposition home or self-care (01) ==
LOC: RAD 09:33
PROVIDERS: PCP Family Medicine Adult Medicine; Visit Provider Family Medicine Adult Medicine
DX: Z12.2 Encounter for screening for malignant neoplasm of respiratory organs (principal); F17.200 Nicotine dependence, unspecified, uncomplicated; J44.9 Chronic obstructive pulmonary disease, unspecified
CPT/HCPCS: 71271

== ENCOUNTER 2023-09-10 09:37 | Emergency (ER) | payer MEDICARE, MEDICAID, SELFPAY ==
[2023-09-10 09:47] VITALS: BP 139/64; PULSE 66; TEMP 36.6; O2SAT 98; BMI 28.4
--- NOTE | 2023-09-10 10:00 | XR_ITS ---
WS: [id number] Exam: XR hip RT 2-3V wo/w pel* [id number] Date/Time of Exam: 09/10/2023 10:03 AM Reason For Exam: injury No acute fracture or dislocation. The joint spaces preserved. Normal soft tissues. IMPRESSION: 1. No acute fracture. 2. Areas of cystic change and sclerosis in the femoral head which are stable when compared to previou s exam.
--- NOTE | 2023-09-10 10:00 | XR_ITS ---
WS: [id number] Exam: XR lumbar spine 2-3V* [id number] Date/Time of Exam: 09/10/2023 10:03 AM Reason For Exam: injury No acute fracture or dislocation. Degenerative disc narrowing and spondylosis at all levels with the exception of the L3-4. There is straightening. Mild levoscoliosis. Posterior elements are intact. IMPRESSION: 1. Moderate degenerative changes. Straightening. Mild levoscoliosis. 2. No fracture or malalignment.
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
[2023-09-10] MEDS: HYDROcodone-acetaminophen 5-325 mg Tablet 1 TAB PO (10:16)
== END 2023-09-10 12:05 | disposition home or self-care (01) ==
PROVIDERS: Emergency Provider Emergency Medicine; PCP Family Medicine Adult Medicine
DX: M54.50 Low back pain, unspecified (principal); Z87.891 Personal history of nicotine dependence; I10 Essential (primary) hypertension; J44.9 Chronic obstructive pulmonary disease, unspecified; Y04.8XXA Assault by other bodily force, initial encounter
CPT/HCPCS: 72100; 73502; 99284

== ENCOUNTER → 2023-11-25 09:08 | Outpatient (BNVA) | payer MEDICARE, MEDICAID, SELFPAY | PROVIDERS: PCP Family Medicine Adult Medicine; Visit Provider Family Medicine Adult Medicine | DX: F41.1 Generalized anxiety disorder (principal); N40.1 Benign prostatic hyperplasia with lower urinary tract symptoms; M54.9 Dorsalgia, unspecified; N13.8 Other obstructive and reflux uropathy; R35.1 Nocturia; I10 Essential (primary) hypertension; Z00.00 Encounter for general adult medical examination without abnormal findings | CPT/HCPCS: 80053; 84443; 85025; G0103 ==

== ENCOUNTER → 2024-09-14 09:00 | Outpatient (BNVA) | payer MEDICARE, MEDICAID, SELFPAY | PROVIDERS: PCP Family Medicine; Visit Provider Family Medicine | DX: Z13.6 Encounter for screening for cardiovascular disorders (principal) | CPT/HCPCS: 80053; 80061; 85025 ==

== ENCOUNTER 2024-09-28 10:18 | Outpatient (CLI) | payer MEDICARE, MEDICAID, SELFPAY ==
--- NOTE | 2024-09-28 10:15 | CT_ITS ---
WS: [id number] LDCT LUNG CANCER SCREENING TECHNIQUE: Noncontrast CT of the chest with coronal and sagittal reformatted images. CLINICAL INFORMATION: screening COMPARISON: 2022 DLP: 87.39 mGy.cm DIvol: Mean CTDIvol: 1.90 (mGy) All CT scans at [facility] use at least one of these dose optimization techniques: automated exposure control; mA and/or kV adjustment per patient size (includes targeted exams where dose is matched to clinical indication); or iterative reconstruction. FINDINGS: Few calcified granulomas. Chronic emphysematous changes. Stable LEFT perifissural nodules. Tiny nodule LEFT upper lobe anteriorly is unchanged. 5 mm RIGHT middle lobe nodule unchanged. No new suspicious pulmonary parenchymal abnormalities. Stable bronchiectasis RIGHT middle lobe. Aortic calcification. No mediastinal or hilar lymphadenopathy. No axillary lymphadenopathy. Adrenal glands are normal. Incidental hepatic cyst dome of the liver measuring 11 mm. Adrenal glands are normal. Splenic granulomas. CT/CT lung screening [id number] IMPRESSION: LUNG-RADS: 2-Benign Appearance or Behavior FOLLOW UP: 12 Month: Continue annual screening with LDCT
== END 2024-09-28 10:19 | disposition home or self-care (01) ==
PROVIDERS: PCP Family Medicine; Visit Provider Family Medicine
DX: Z12.2 Encounter for screening for malignant neoplasm of respiratory organs (principal); F17.219 Nicotine dependence, cigarettes, with unspecified nicotine-induced disorders; J84.10 Pulmonary fibrosis, unspecified; J43.8 Other emphysema; R91.8 Other nonspecific abnormal finding of lung field; J47.9 Bronchiectasis, uncomplicated; I70.0 Atherosclerosis of aorta; K76.89 Other specified diseases of liver; D73.89 Other diseases of spleen
CPT/HCPCS: 71271

== ENCOUNTER → 2024-10-11 08:44 | Outpatient (BNVA) | payer MEDICARE, MEDICAID, SELFPAY | PROVIDERS: PCP Family Medicine; Visit Provider Family Medicine | DX: A93.8 Other specified arthropod-borne viral fevers (principal) | CPT/HCPCS: 86618; 86666; 86757 ==